=== PATIENT | female | born 1995 | race Caucasian/White ===

== ENCOUNTER 2024-09-15 17:16 | Emergency (ER) | payer OTHER, SELFPAY ==
[2024-09-15 17:31] VITALS: BP 103/70; PULSE 92; RESP 18; TEMP 36.8; O2SAT 100
--- NOTE | 2024-09-15 17:39 | ED_ITS ---
HPI - URI/Sore Throat General Chief Complaint: Upper Respiratory Infection Stated Complaint: Cough/SOB/Lightheaded Source: patient Mode of arrival: ambulatory Limitations: no limitations History of Present Illness HPI Narrative: 29-year-old female presented for complaint of cough for 2 days. Says she started wheezing and feels short of breath today. Denies chest pain, fever, body aches nausea, vomiting lethargy. She took Mucinex DM. Related Data Home Medications ?Medication ?Instructions ?Recorded ?Confirmed ?Last Taken ?Type drospirenone 3 mg-ethinyl 1 tablet PO DAILY 09/15/24 09/15/24 Unknown History estradiol 0.03 mg tablet fluoxetine 60 mg tablet 60 mg PO QPM 09/15/24 09/15/24 Unknown History propranolol 80 mg capsule,24 80 mg PO Q24H 09/15/24 09/15/24 Unknown History hr,extended release trazodone 50 mg tablet 50 mg PO DAILY 09/15/24 09/15/24 Unknown History Allergies Allergy/AdvReac Type Severity Reaction Status Date / Time codeine Allergy Mild Hives Verified 09/15/24 17:29 Review of Systems Review of Systems: CONSTITUTIONAL: Denies body aches, fever, chills, or sweats. EYES: Denies visual changes, redness, or discharge. ENT: Denies rhinorrhea, congestion, sore throat, or otalgia. CARDIOVASCULAR: Denies chest pain, palpitations, or edema. RESPIRATORY: Reports cough, sob, wheezing. GASTROINTESTINAL: Denies abdominal pain, nausea, vomiting, or diarrhea. MUSCULOSKELETAL: Denies back pain, joint pain NEUROLOGIC: Denies headache, numbness, tingling, or weakness. All systems reviewed & are unremarkable except as noted in HPI and below [facility] Comments At time of signature, I have reviewed and agree with nursing past medical, surgical, social and family history unless otherwise noted. Please see nursing chart for further information. There is no relevant family history pertinent to the presenting complaint Exam Narrative: GENERAL: Well-appearing EYES: EOMI. No redness or drainage. Conjunctivae normal. ENT: Mucous membranes pink and moist. No rhinorrhea. TMs normal bilaterally. Throat normal. Uvula midline. NECK: Normal AROM. Supple. CHEST: No respiratory distress. Lungs clear to all self. Frequent harsh nonproductive cough HEART: Regular rate and rhythm. No murmur appreciated. SKIN: Warm, dry, no rash. Capillary refill normal. Normal skin turgor. NEURO: Alert and oriented x3. Gait steady. PSYCH: Normal affect. Course Course Emergency Course: Patient is aware of diagnosis, understands and agrees to treatment plan. Anticipatory guidance given. Patient agrees to follow-up as directed and is aware of reasons to seek care at the emergency department. Portions of this record may have been created with voice recognition software Level of Care: Express Care Visit Vital Signs Vital signs: Vital Signs Temperature 98.2 F 09/15/24 17:31 Pulse Rate 92 09/15/24 17:31 Respiratory Rate 18 09/15/24 17:31 Blood Pressure 103/70 09/15/24 17:31 Pulse Oximetry 100 09/15/24 17:31 Oxygen Delivery Room Air 09/15/24 17:31 Temperature 98.2 F 09/15/24 17:31 Pulse Rate 92 09/15/24 17:31 Respiratory Rate 18 09/15/24 17:31 Blood Pressure 103/70 09/15/24 17:31 Pulse Oximetry 100 09/15/24 17:31 Oxygen Delivery Room Air 09/15/24 17:31 MDM - URI/Sore Throat MDM Narrative Medical decision making narrative: neg flu and covid Discussed physical exam findings and RXs. Advised supportive measures and signs/symptoms to go to the ER. Pt is appropriate for outpt treatment and f/u. Differential Diagnosis Differential diagnosis: Likely upper respiratory infection, sinusitis, viral infection and bronchitis Lab Data Labs: Lab Results 09/15/24 Range/Units 18:03 POC Influenza A Ag Negative (Negative) POC Influenza B Ag Negative (Negative) POC SARS CoV-2 Ag Negative (Negative) Discharge Plan Discharge Clinical Impression: Viral infection Patient Disposition: Home, Self-Care Condition: Stable Instructions: Acute Bronchitis (ED) Additional Instructions: Flu and COVID negative Acute bronchitis can be contagious because it is usually caused by infection with a virus or bacteria. It is usually for a few days but you can be contagious for up to one week. Take medication as directed Recommend : Flonase spray and Zyrtec (or Claritin/Radha) over the counter Cough syrup may cause drowsiness; avoid driving or take it at night time. Tylenol 1000mg every 8 hours as needed for pain Symptomatic treatment includes: rest, fluids, and increase humidity of the air at home. Follow up with your primary care provider as needed in 1 week Go to the ER for worsening symptoms or concerns Patient Language: [place] Prescriptions: New benzonatate 200 mg capsule 200 mg PO TID PRN (Reason: cough) Qty: 20 0RF prednisone 20 mg tablet 40 mg PO DAILY 4 Days Qty: 8 0RF No Action drospirenone-ethinyl estradiol 3-0.03 mg tablet 1 tablet PO DAILY fluoxetine 60 mg tablet 60 mg PO QPM propranolol 80 mg capsule,extended release 24 hr 80 mg PO Q24H trazodone 50 mg tablet 50 mg PO DAILY Follow-up/Referrals: UNKNOWN,DOCTOR [Primary Care Provider] - Stand Alone Forms: Work/School Release IP
[2024-09-15 18:05] LABS: EDCOVIDSCREEN Negative (Negative); EDINFLUASCREEN Negative (Negative); EDINFLUBSCREEN Negative (Negative)
== END 2024-09-15 18:40 | disposition home or self-care (01) ==
PROVIDERS: Emergency Provider Nurse Practitioner Family
DX: B34.9 Viral infection, unspecified (principal); Z20.822 Contact with and (suspected) exposure to COVID-19; N80.9 Endometriosis, unspecified; E28.2 Polycystic ovarian syndrome
CPT/HCPCS: 87426; 87804; 99203; G0463